=== PATIENT | male | born 1990 | race Two or more races ===

== ENCOUNTER 2019-04-27 15:21 | Emergency (ER) | payer SELFPAY ==
[~2019-04-27] VITALS: Ht 172.7 cm; Wt 83.9 kg
[2019-04-27 16:00] VITALS: BP 152/89
--- NOTE | 2019-04-27 16:00 | NUR ---
ED Nurse Note: Pt ambulated into ED from work with CO injury to right hand which occured at work. Pt reports accidentally cutting hand open with razor blade used to cut carpet and rugs. Pt vs in stable condition, aao x 4, ERMD at bedside.
--- NOTE | 2019-04-27 16:20 | NUR ---
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 Pt soaking affected hand in 1L of NS.
--- NOTE | 2019-04-27 16:45 | NUR ---
ED Nurse Note: xray at bedside
--- NOTE | 2019-04-27 16:48 | NUR ---
ED Nurse Note: All medications administered to pt. Pt tolerated well, no s/s of distress, vs in stable condition.
--- NOTE | 2019-04-27 16:55 | Diagnostic Imaging Report ---
Indication: Pain, trauma Technique: 3 views ] hand Comparison: No Findings: No acute fractures. No dislocations. Joint spaces are preserved. Impression: Negative
--- NOTE | 2019-04-27 17:30 | NUR ---
ED Nurse Note: Pt resting in bed, awaiting plastic surgeon.
[2019-04-27 18:00] VITALS: BP 147/82
[2019-04-27] MEDS ORDERED: Lidocaine 1% Plain 30 ml INJ ONE (18:00)
--- NOTE | 2019-04-27 18:20 | NUR ---
ED Nurse Note: Plastic surgeon at bedside, consent forms signed
--- NOTE | 2019-04-27 19:23 | NUR ---
HANDOFF: Report given to REBEKA Calabrese. Pt in room with plastic surgeon, no distress noted.
--- NOTE | 2019-04-27 19:25 | NUR ---
ED Nurse Note: Report received from REBEKA Gallegos. Plastic surgeon is still in room with patient at this time. No acute distress noted. Will continue to monitor.
[2019-04-27] MEDS ORDERED: Bacitracin Oint UD TOPIC ONE ×2 (19:26→19:30)
--- NOTE | 2019-04-27 19:40 | Emergency Room Report ---
History of Present Illness General Chief Complaint: Laceration Source: Patient Present Illness HPI 28-year-old male with no significant past medical history here with right hand laceration that happened at work earlier today. Patient was using a plane and reports that he accidentally cut himself because it appears to be deep and patient is wearing return to capital Bactroban excess bleeding. Patient is up- to-date with tetanus shot. Has full range of motion. No motor or sensory deficits noted. Deep laceration noted on the right middle and index finger. Denies all other injuries. Denies taking blood thinners all other medication. Allergies: Coded Allergies: No Known Allergies (Unverified , 04/27/19) Patient History Past Medical History: see triage record Past Surgical History: unable to obtain Pertinent Family History: none Immunizations: UTD Reviewed Nursing Documentation: PMH: Agreed; PSxH: Agreed Nursing Documentation-PMH Past Medical History: No Stated History Review of Systems All Other Systems: negative except mentioned in HPI Physical Exam Vital Signs Date Time Temp Pulse Resp B/P (MAP) Pulse Ox O2 Delivery O2 Flow Rate FiO2 04/27/19 15:52 98.4 100 18 153/86 (108) 98 Room Air Sp02 EP Interpretation: reviewed, normal General Appearance: no apparent distress, alert, GCS 15, non-toxic Head: normocephalic, atraumatic Eyes: bilateral eye normal inspection, bilateral eye PERRL ENT: hearing grossly normal, normal pharynx, no angioedema, normal voice Neck: full range of motion, supple, thyroid normal, no meningismus, no bony tend, supple/symm/no masses Respiratory: chest non-tender, lungs clear, normal breath sounds, no rhonchi, no retraction, no wheezing, speaking full sentences Cardiovascular #1: regular rate, rhythm, no edema, no murmur, JVD, normal capillary refill Cardiovascular #2: 2+ radial (R), 2+ radial (L) Gastrointestinal: normal bowel sounds, non tender, soft, non-distended, no guarding, no rebound Rectal: deferred Musculoskeletal: back normal, normal range of motion, other - Deep laceration right hand Neurologic: alert, motor strength/tone normal, oriented x3, sensory intact, responsive, speech normal Psychiatric: judgement/insight normal, memory normal, mood/affect normal, no suicidal/homicidal ideation Skin: laceration - The right index and middle finger Lymphatic: no adenopathy Procedures Laceration/Wound Repair Laceration/Wound Repair : Consent: Verbal Wound Location: upper extremity - Right hand Wound's Depth, Shape: into muscle Wound Length (cm): 5 Wound Explored: contaminated Irrigated w/ Saline (ccs): 20 Betadine Prep?: Yes Anesthesia: 1% Lidocaine Volume Anesthetic (ccs): 20 Wound Repaired With: sutures Suture Size/Type: 5:0, proline Number of Sutures: 30 Layer Closure?: Yes Sterile Dressing Applied?: Yes Splint Applied?: No Sling Applied?: No Patient Tolerated: Well Complications: None Progress Laceration repair done by Medical Decision Making PA Attestation All my diagnosis and treatment plans were reviewed ad discussed with my supervising physician Dr. Serrano Diagnostic Impression: Primary Impression: Deep laceration of finger ER Course 28-year-old male with no significant past medical history here with right hand laceration that happened at work earlier today. Patient was using a plane and reports that he accidentally cut himself because it appears to be deep and patient is wearing return to capital Bactroban excess bleeding. Patient is up- to-date with tetanus shot. Has full range of motion. No motor or sensory deficits noted. Deep laceration noted on the right middle and index finger. Denies all other injuries. Denies taking blood thinners all other medication. Ddx considered but are not limited to : Superficial laceration, deep laceration , tendon involvement with laceration, laceration with foreign body Vital signs: are WNL, pt. is afebrile H&PE are most consistent with: Deep laceration of finger ORDERS: Keflex, ibuprofen ED INTERVENTIONS: Laceration repair, wound clean and dressed, Ancef DISCHARGE: At this time pt. is stable for d/c to home. Will provide printed patient care instructions, and any necessary prescriptions. Care plan and follow up instructions have been discussed with the patient prior to discharge. Patient to follow-up primary care provider as well as with Dr. Sands as a laceration repair was done by him and he advised patient to follow-up with him in 1 week. If worsening symptoms return to emergency room . Originally I was informed this is a Worker's Compensation case and the Worker 's Compensation paperwork was placed on my desk however later after Dr. Mclean had already repaired the laceration I was told by registration it is not a Worker's Compensation case as patient does not have any insurance and does not have a Social Security number in order to get a steady payment and he gets paid in case. Other X-Ray Diagnostic Results Other X-Ray Diagnostic Results : X-Ray ordered: hand Xray # of Views/Limited Vs Complete: 3 View Indication: Pain EP Interpretation: Yes PA Xray: Interpretation reviewed, by supervising MD, and agrees with findings. Interpretation: no dislocation, no soft tissue swelling, no fractures Impression: No acute disease Electronically Signed by: Jose Koroma PA-C Last Vital Signs Date Time Temp Pulse Resp B/P (MAP) Pulse Ox O2 Delivery O2 Flow Rate FiO2 04/27/19 18:00 98.4 92 14 147/82 98 Room Air Disposition: HOME, SELF-CARE Condition: Stable Scripts Ibuprofen (Ibu) 800 Mg Tablet 800 MG PO TID, #30 TAB Prov: Jose Davies 04/27/19 Cephalexin* (KEFLEX*) 500 Mg Capsule 500 MG ORAL EVERY 6 HOURS for 7 Days, #28 CAP Prov: Jose Davies 04/27/19 Referrals: NOT CHOSEN IPA/,REFERRING (PCP) Patient Instructions: Laceration Care, Adult Jose Davies Apr 27, 2019 19:40
[2019-04-27] MEDS ORDERED: CEPHALEXIN500 MG ORAL (19:42)
[2019-04-27] MEDS ORDERED: IBU800 MG PO (19:42)
[2019-04-27 19:55] VITALS: BP 140/85
--- NOTE | 2019-04-27 19:55 | NUR ---
ER DISCHARGE NOTE: Patient is cleared to be discharged per ERMD, pt is aox4, on room air, with stable vital signs. pt was given dc and prescription instructions, pt was able to verbalize understanding, pt id band removed. pt is able to ambulate with steady gait. pt took all belongings.
== END 2019-04-27 19:55 | disposition home or self-care (01) ==
LOC: EMR 18:48
DX: S61.210A Laceration without foreign body of right index finger without damage to nail, initial encounter (principal); S61.212A Laceration without foreign body of right middle finger without damage to nail, initial encounter; W27.8XXA Contact with other nonpowered hand tool, initial encounter; Y93.89 Activity, other specified; Y92.9 Unspecified place or not applicable
CPT/HCPCS: 12042; 73130; 96372; 99283; J0690; J2001